=== PATIENT | female | born 1940 | race Caucasian/White ===

== ENCOUNTER 2017-09-22 19:00 | Emergency (ER) | payer MEDICAID ==
[2017-09-22 19:00] VITALS: BMI 28.7
[2017-09-22 19:19] VITALS: RESP 20
[2017-09-22] MEDS ORDERED: Iohexol 240 (50 ml) PO ONE (19:32)
[2017-09-22] MEDS ORDERED: Sodium Chloride 0.9% 1,000 ML IV ONE (19:33)
--- NOTE | 2017-09-22 19:35 | C.PDOC ---
77-year-old female presents to the ED for evaluation of headache and dizziness which began a few days ago. Patient is also complaining of abdominal pain and states she has been feeling nauseous. Patient reports history of dysuria and denies fever, chills, vomiting, diarrhea. (GuillermoGarry R) History Per: Patient History/Exam Limitations: no limitations Onset/Duration Of Symptoms: Days Current Symptoms Are (Timing): Still Present Quality Of Discomfort: "Pain" Associated Symptoms: Nausea. denies: Fever, Chills, Vomiting, Diarrhea Additional History Per: Patient Abnormal Vaginal Bleeding: No <Garry Guillermo R - Last Filed: 09/22/17 23:12> <Sunita Sanches - Last Filed: 09/26/17 15:32> Chief Complaint (Nursing): Abdominal Pain Past Medical History Reviewed: Historical Data, Nursing Documentation, Vital Signs - Medical History PMH: Arthritis (left shoulder), Asthma, CAD, CHF, HTN, Hypercholesterolemia, Hyperlipidemia Surgical History: CABG Family History: States: Unknown Family Hx - Social History Hx Tobacco Use: No Hx Alcohol Use: No Hx Substance Use: No - Immunization History Hx Tetanus Toxoid Vaccination: No Hx Influenza Vaccination: Yes Hx Pneumococcal Vaccination: No <Garry Guillermo R - Last Filed: 09/22/17 23:12> Vital Signs: Last Vital Signs Temp 97.6 F 09/22/17 23:27 Pulse 81 09/22/17 23:27 Resp 20 09/22/17 23:27 BP 140/70 09/22/17 23:27 Pulse Ox 98 09/22/17 23:27 - [facility] Procedures CLOSED ENDOSCOPIC BIOPSY OF LARGE INTESTINE (03/15/14) CORONAR ARTERIOGR-2 CATH (09/05/12) LEFT HEART CARDIAC CATH (09/05/12) LT HEART ANGIOCARDIOGRAM (09/05/12) Review Of Systems Constitutional: Negative for: Fever, Chills Gastrointestinal: Positive for: Nausea, Abdominal Pain. Negative for: Vomiting , Diarrhea Neurological: Positive for: Headache, Dizziness <Garry Guillermo R - Last Filed: 09/22/17 23:12> Physical Exam - Physical Exam Appears: Non-toxic, No Acute Distress, Other (in mild distress due to headache ) Skin: Normal Color, Warm, Dry Head: Atraumatic, Normacephalic Eye(s): bilateral: PERRL, EOMI, Other (lateral nystagmus ) Ear(s): Bilateral: Normal Oral Mucosa: Moist Neck: Normal ROM, Supple Chest: Symmetrical, No Deformity, No Tenderness Cardiovascular: Rhythm Regular, No Murmur Respiratory: Normal Breath Sounds, No Rales, No Rhonchi, No Wheezing Gastrointestinal/Abdominal: Soft, Tenderness (to left lower quadrant ), No Guarding, No Rebound Extremity: Normal ROM, Capillary Refill (less than 2 seconds ) Neurological/Psych: Oriented x3, Normal Speech, Normal Cognition Gait: Steady <Guillermo,Garry R - Last Filed: 09/22/17 23:12> ED Course And Treatment - Laboratory Results Result Diagrams: 09/22/17 19:41 09/22/17 19:41 O2 Sat by Pulse Oximetry: 97 (on RA) Pulse Ox Interpretation: Normal - CT Scan/US CT head Other Rad Studies (CT/US): Read By Radiologist, Radiology Report Reviewed CT/US Interpretation: FINDINGS: Brain: There is mild diffuse cerebral atrophy present, consistent with this patient's age. The brain is. otherwise unremarkable. Normal jalloh-white matter differentiation is present, without acute. hemorrhage, or mass. Ventricles: Unremarkable. No ventriculomegaly. Bones/joints: Unremarkable. No acute fracture. Soft tissues: Unremarkable. Sinuses: Unremarkable as visualized. No acute sinusitis. Mastoid air cells: Unremarkable as visualized. No mastoid effusion. IMPRESSION: No acute intracranial findings are seen. Thank you for allowing us to participate in the care of your patient. Dictated and Authenticated by: Gato Aguilera MD. 09/22/2017 10:20 PM Eastern Time ([place] & [place]) CT C Spine Other Rad Studies (CT/US): Read By Radiologist, Radiology Report Reviewed CT/US Interpretation: FINDINGS: Vertebrae: There is moderate diffuse osteopenia. No acute fracture. Discs/spinal canal/neural foramina: There is moderate intervertebral disc height loss and adjacent. sclerosis associated with C5-C6. The facet joints demonstrate moderate degenerative narrowing and. sclerosis, most pronounced at C3-C4 on the left. Soft tissues: Unremarkable. Vasculature: There is marked atherosclerotic calcification of the carotid arteries. Sinuses: Sinuses are clear without air-fluid levels, or mucoperiosteal thickening. Thyroid: There is a lesion of the right thyroid lobe with coarse calcification measuring 1 mm. Lung apices: Unremarkable as visualized. IMPRESSION: No significant injury noted in the C-spine. Moderate age-appropriate degenerative changes. Thank you for allowing us to participate in the care of your patient. CT abd/pelvis Other Rad Studies (CT/US): Read By Radiologist, Radiology Report Reviewed CT/US Interpretation: FINDINGS: Lung bases: Scattered likely postinflammatory 2 mm nodules in the lung base subpleural in location. on the right side. ABDOMEN: Liver: Unremarkable. No mass. Gallbladder and bile ducts: There has been a cholecystectomy. Pancreas: Unremarkable. No mass. No ductal dilation. Spleen: Benign calcifications associated with the splenic capsule. Adrenals: Unremarkable. No mass. Kidneys and ureters: Large fatty mass associated with the perinephric region differential diagnosis. includes a very large angiomyolipoma or a prominent liposarcoma. Numerous vessels are seen. extending to this fatty mass which measures approximately 11 x 13 cm. Stomach and bowel: Bowel loops appear within normal limits, no signs of wall thickening , mucosal. edema, or bowel distention. Moderate diverticulosis is present in the sigmoid and descending colon. PELVIS: Appendix: A normal appendix seen in the right lower quadrant. Bladder: Unremarkable. No mass. Reproductive: Unremarkable as visualized. ABDOMEN and PELVIS: Intraperitoneal space: Unremarkable. No free air. No significant fluid collection. Bones/joints: No acute fracture. No dislocation. Soft tissues: Small fat-containing paraumbilical hernia is present. Vasculature: The aorta demonstrates moderate atherosclerotic calcification. No abdominal aortic. aneurysm. Lymph nodes: Unremarkable. No enlarged lymph nodes. IMPRESSION: Large fatty mass associated with the left kidney and left perinephric space. Differential diagnosis. includes a prominent angiomyolipoma, or liposarcoma. Incidental nonacute findings, which are described. Thank you for allowing us to participate in the care of your patient. Dictated and Authenticated by: Gato Aguilera MD. 09/22/2017 10:30 PM Eastern Time ([place] & [place]) Progress Note: Bloodwork, CT A/P, CT Cervical Spine, CT Head, EKG ordered and reviewed. Antivert PO, Toradol IVP, Zofran IVP and IV Fluids administered. <Garry Guillermo R - Last Filed: 09/22/17 23:12> - Laboratory Results Result Diagrams: 09/22/17 19:41 09/22/17 19:41 <Sunita Sanches - Last Filed: 09/26/17 15:32> Disposition Counseled Patient/Family Regarding: Diagnosis - Disposition Disposition Time: 23:04 - POA Present On Arrival: None <Garry Guillermo - Last Filed: 09/22/17 23:12> <Sunita Sanches - Last Filed: 09/26/17 15:32> - Disposition Referrals: [facility] at [facility] [Outside] Disposition: HOME/ ROUTINE Condition: STABLE Prescriptions: Meclizine [Antivert] 12.5 mg PO Q6 #14 tab Naproxen 375 mg PO TIDPC #20 tablet Nitrofurantoin Macrocrystals [Macrobid] 1 cap PO BID #14 cap Instructions: Urinary Tract Infections in Adults, Vertigo (a Type of Dizziness ) (DC) Forms: [employer] (Paraguayan), Gen Discharge Inst [place] Print Language: CITIZEN OF [place] - Clinical Impression Clinical Impression: Vertigo, UTI (urinary tract infection) - Scribe Statement The provider has reviewed the documentation as recorded by the Scribe (Neelima Aponte) <Garry Guillermo - Last Filed: 09/22/17 23:12> <Sunita Sanches - Last Filed: 09/26/17 15:32> - Scribe Statement Provider Attestation: All medical record entries made by the Scribe were at my direction and personally dictated by me. I have reviewed the chart and agree that the record accurately reflects my personal performance of the history, physical exam, medical decision making, and the department course for this patient. I have also personally directed, reviewed, and agree with the discharge instructions and disposition. (Garry Guillermo) Addendum <Garry Guillermo - Last Filed: 09/22/17 23:12> <Sunita Sanches - Last Filed: 09/26/17 15:32> Addendum: 09/26/17 15:30 radiology discrepancy PROCEDURE: CT Cervical Spine without contrast HISTORY: head and neck pain COMPARISON: None available. TECHNIQUE: Axial computed tomography images were obtained of the cervical spine without the use of intravenous contrast. Coronal and sagittal reformatted images were created and reviewed. Radiation dose: Total exam DLP = 489.99 mGy-cm. This CT exam was performed using one or more of the following dose reduction techniques: Automated exposure control, adjustment of the mA and/or kV according to patient size, and/or use of iterative reconstruction technique. FINDINGS: VERTEBRAE: There is normal alignment of the cervical vertebral bodies. There is straightening of cell cervical spine with loss of normal cervical lordosis. Vertebral height is normal. Bone mineralization is normal. There is no acute fracture or traumatic anterior listhesis. The craniocervical junction is normal. The atlantoaxial joint normal. There is diffuse bone demineralization. DISCS/SPINAL CANAL/NEURAL FORAMINA: There is multilevel degenerative disc disease due to combination of disc osteophyte complexes, uncovertebral joint hypertrophy and multilevel facet arthropathy, worse at C5-6 with moderate neural foraminal narrowing and mild spinal canal stenosis. PARASPINAL SOFT TISSUES: Unremarkable. OTHER FINDINGS: There is a calcified nodule in the right thyroid lobe. There is an exophytic noncalcified nodule in the left lower pole of the thyroid lobe. The lung apices are clear. IMPRESSION: Multilevel degenerative disc disease, worse at C5-6 with moderate neural foraminal narrowing and mild spinal canal stenosis. No acute fracture or traumatic anterior listhesis. Multinodular thyroid gland with an anticipated non calcified nodule in the lower pole of the left thyroid lobe. A dedicated thyroid ultrasound is recommended for further evaluation. A preliminary report was provided by [employer]. Additional findings in the thyroid lobe as described above. The final report is tagged to PA review folder. Unable to reach patient. Will send certified letter Perhaps, on preliminary reading same findings were noted. (Sunita Sanches)
[2017-09-22] MEDS ORDERED: Iohexol 240 (50 ml) ONE (19:46)
[2017-09-22] MEDS ORDERED: Sodium Chloride 0.9% 1,000 ML ONE (19:46)
[2017-09-22 19:47] LABS: BASO # 0.1 K/uL (0.0-0.2); BASO % 0.7 % (0.0-2.0); EOS # 0.1 K/uL (0.0-0.7); EOS % 1.4 % (0.0-4.0); HEMOGLOBIN 11.6 g/dL (11.0-16.0); LYMPH # 2.5 K/uL (1.0-4.3); LYMPH % 27.8 % (20.0-40.0); MEAN CORPUSCULAR HEMOGLOBIN 26.2 pg (27.0-31.0); MEAN CORPUSCULAR HGB CONC 32.7 g/dL (33.0-37.0); MONO % 11.8 % (0.0-10.0); NEUT # 5.2 K/uL (1.8-7.0); NEUT % 58.3 % (50.0-75.0); RBC 4.44 Mil/uL (3.80-5.20); WHITE BLOOD COUNT 8.8 K/uL (4.8-10.8)
[2017-09-22 19:59] LABS: ALBUMIN 4.7 g/dL (3.5-5.0); BLOOD UREA NITROGEN 25 mg/dL (7-17); CALCIUM 9.5 mg/dl (8.6-10.4); GFR AFRICAN-AMERICAN > 60; GFR NON-AFRICAN AMERICAN > 60
[2017-09-22 20:00] LABS: ALB/GLOB RATIO 1.4 (1.0-2.1); ALT/SGPT 23 U/L (9-52); AST/SGOT 22 U/L (14-36)
[2017-09-22] MEDS ORDERED: Iodixanol 320 MG/ML 100 ML BOTTLE IV ONE (20:59)
[2017-09-22 22:53] LABS: SQUAMOUS EPITHIAL 3 /hpf (0-5); URINE BACTERIA MOD (<OCC); URINE BILIRUBIN NEGATIVE (NEGATIVE); URINE BLOOD NEGATIVE (NEGATIVE); URINE CLARITY Clear (Clear); URINE COLOR Straw (YELLOW); URINE GLUCOSE (UA) NORMAL (Normal); URINE LEUKOCYTE ESTERASE 1+ Leu/uL (Negative); URINE PROTEIN NEGATIVE (NEGATIVE); URINE UROBILINOGEN NORMAL mg/dL (0.2-1.0)
[2017-09-22 23:27] VITALS: BP 140/70; PULSE 81; TEMP 97.6; O2SAT 98
--- NOTE | 2017-09-23 08:48 | CT ---
PROCEDURE: CT HEAD WITHOUT CONTRAST. HISTORY: Headache COMPARISON: None available. TECHNIQUE: Axial computed tomography images were obtained through the head/brain without intravenous contrast. Radiation dose: Total exam DLP = 792.73 mGy-cm. This CT exam was performed using one or more of the following dose reduction techniques: Automated exposure control, adjustment of the mA and/or kV according to patient size, and/or use of iterative reconstruction technique. FINDINGS: HEMORRHAGE: No intracranial hemorrhage. BRAIN: There are mild chronic microangiopathic changes. There is no mass, mass effect or abnormal extra-axial fluid collection. There is no territorial infarction. VENTRICLES: There is mild age-related global parenchymal volume loss and proportionate enlargement of the ventricles and cortical sulci. CALVARIUM: Unremarkable. PARANASAL SINUSES: Unremarkable as visualized. No significant inflammatory changes. MASTOID AIR CELLS: Unremarkable as visualized. No inflammatory changes. OTHER FINDINGS: None. IMPRESSION: No acute intracranial abnormality. Mild chronic microangiopathic changes and mild age-related global parenchymal volume loss. A preliminary report was provided by [employer].
--- NOTE | 2017-09-23 09:34 | CT ---
PROCEDURE: CT Cervical Spine without contrast HISTORY: head and neck pain COMPARISON: None available. TECHNIQUE: Axial computed tomography images were obtained of the cervical spine without the use of intravenous contrast. Coronal and sagittal reformatted images were created and reviewed. Radiation dose: Total exam DLP = 489.99 mGy-cm. This CT exam was performed using one or more of the following dose reduction techniques: Automated exposure control, adjustment of the mA and/or kV according to patient size, and/or use of iterative reconstruction technique. FINDINGS: VERTEBRAE: There is normal alignment of the cervical vertebral bodies. There is straightening of cell cervical spine with loss of normal cervical lordosis. Vertebral height is normal. Bone mineralization is normal. There is no acute fracture or traumatic anterior listhesis. The craniocervical junction is normal. The atlantoaxial joint normal. There is diffuse bone demineralization. DISCS/SPINAL CANAL/NEURAL FORAMINA: There is multilevel degenerative disc disease due to combination of disc osteophyte complexes, uncovertebral joint hypertrophy and multilevel facet arthropathy, worse at C5-6 with moderate neural foraminal narrowing and mild spinal canal stenosis. PARASPINAL SOFT TISSUES: Unremarkable. OTHER FINDINGS: There is a calcified nodule in the right thyroid lobe. There is an exophytic noncalcified nodule in the left lower pole of the thyroid lobe. The lung apices are clear. IMPRESSION: Multilevel degenerative disc disease, worse at C5-6 with moderate neural foraminal narrowing and mild spinal canal stenosis. No acute fracture or traumatic anterior listhesis. Multinodular thyroid gland with an anticipated non calcified nodule in the lower pole of the left thyroid lobe. A dedicated thyroid ultrasound is recommended for further evaluation. A preliminary report was provided by [employer]. Additional findings in the thyroid lobe as described above. The final report is tagged to PA review folder.
--- NOTE | 2017-09-23 15:05 | CT ---
PROCEDURE: CT Abdomen and Pelvis with contrast HISTORY: LLQ/ epigastric abd pain COMPARISON: 02/25/2015. TECHNIQUE: CT scan of the abdomen and pelvis was performed without administration of intravenous contrast. Oral contrast was not administered. Coronal and sagittal reformatted images were obtained. Contrast dose: 100 mL Visipaque Radiation dose: Total exam DLP = 417.51 mGy-cm. This CT exam was performed using one or more of the following dose reduction techniques: Automated exposure control, adjustment of the mA and/or kV according to patient size, and/or use of iterative reconstruction technique. FINDINGS: LOWER THORAX: The visualized lungs are clear. LIVER: Normal in size with homogeneous enhancement. No gross lesion or ductal dilatation. GALLBLADDER AND BILE DUCTS: Surgically absent. PANCREAS: Normal in size with homogeneous enhancement. No gross lesion or ductal dilatation. SPLEEN: Normal in size with homogeneous enhancement. There are coarse lateral capsular calcifications in the upper pole. ADRENALS: No discrete nodule. KIDNEYS AND URETERS: The right kidney is normal in size with homogeneous enhancement. No hydronephrosis. No solid mass. The left kidney is normal in size without hydronephrosis or nephrolithiasis. There are small simple cortical cysts. There is redemonstration of a large fat-density exophytic mass with large feeding vessels in the left perinephric region not significantly changed in size and appearance since the prior examination. VASCULATURE: Advanced atherosclerotic aortoiliac calcifications. No aortic aneurysm. BOWEL: The small bowel loops are normal in caliber. There is colonic diverticulosis without CT evidence for acute diverticulitis. No obstruction. No gross mural thickening. APPENDIX: Normal appendix. PERITONEUM: No free fluid. No free air. LYMPH NODES: No enlarged lymph nodes. BLADDER: Unremarkable. REPRODUCTIVE: Unremarkable. BONES: No acute fracture. Within normal limits for the patient's age. OTHER FINDINGS: None. IMPRESSION: 1. No acute abdominal or pelvic abnormality. 2. No significant interval change in size and appearance of large fatty density vascular exophytic mass in the left perinephric region which may represent an angiomyolipoma or liposarcoma. 3. Left colonic diverticulosis without CT evidence for acute diverticulitis. A preliminary report was provided by [employer].
--- NOTE | 2017-09-26 12:06 | CARD ---
APPROVED REPORT EKG Measurement Heart Prer60PBGR IN 142P59 [id number] <Conclusion> Normal sinus rhythm with sinus arrhythmia Minimal voltage criteria for LVH, may be normal variant Inferior infarct, age undetermined Abnormal ECG
== END 2017-09-22 23:29 | disposition home or self-care (01) ==
LOC: C.ER 19:00
DX: R42 Dizziness and giddiness (principal); N39.0 Urinary tract infection, site not specified
CPT/HCPCS: 70450; 72125; 74177; 80053; 81001; 82948; 85025; 87086; 87181; 93005; 96361; 96374; 96375; 99285; J1885; J2060; J2405; J7030; Q9966; Q9967

== ENCOUNTER 2017-12-31 19:47 | Inpatient (IN) | payer MEDICAID ==
[2017-12-31 19:47] VITALS: BMI 28.7
[2017-12-31] MEDS ORDERED: Sodium Chloride 0.9% 1,000 ML IV ONE ×2 (20:12)
--- NOTE | 2017-12-31 20:19 | C.PDOC ---
History Of Present Illness 77 year old female presents to the ED c/o left sided abdominal pain that radiates to her left groin that started this morning. Patient also states having some nausea. Patient has prior history of kidney problems in the past. Patient denies fever, chills, vomit, diarrhea, dysuria, hematuria, back pain. Chief Complaint (Nursing): Abdominal Pain History Per: Patient History/Exam Limitations: no limitations Onset/Duration Of Symptoms: Hrs Current Symptoms Are (Timing): Still Present Severity: Moderate Pain Scale Rating Of: 8 Location Of Pain/Discomfort: LLQ Radiation Of Pain To:: None Quality Of Discomfort: "Pain" Associated Symptoms: Nausea. denies: Vomiting, Diarrhea, Loss Of Appetite, Urinary Symptoms Exacerbating Factors: None Alleviating Factors: None Recent travel outside of the [place]: No Additional History Per: Patient Abnormal Vaginal Bleeding: No Past Medical History Reviewed: Historical Data, Nursing Documentation, Vital Signs Vital Signs: Last Vital Signs Temp 97.5 F L 12/31/17 19:49 Pulse 104 H 12/31/17 19:49 Resp 20 12/31/17 19:49 BP 170/73 H 12/31/17 19:49 Pulse Ox 97 12/31/17 19:49 - Medical History PMH: Arthritis (left shoulder), Asthma, CAD, CHF, HTN, Hypercholesterolemia, Hyperlipidemia Surgical History: CABG - [facility] Procedures CLOSED ENDOSCOPIC BIOPSY OF LARGE INTESTINE (03/15/14) CORONAR ARTERIOGR-2 CATH (09/05/12) LEFT HEART CARDIAC CATH (09/05/12) LT HEART ANGIOCARDIOGRAM (09/05/12) Family History: States: Unknown Family Hx - Social History Hx Tobacco Use: No Hx Alcohol Use: No Hx Substance Use: No - Immunization History Hx Tetanus Toxoid Vaccination: No Hx Influenza Vaccination: Yes Hx Pneumococcal Vaccination: No Review Of Systems Constitutional: Negative for: Fever, Chills Cardiovascular: Negative for: Chest Pain Respiratory: Negative for: Shortness of Breath Gastrointestinal: Positive for: Nausea, Abdominal Pain. Negative for: Vomiting, Diarrhea Genitourinary: Negative for: Dysuria, Hematuria Skin: Negative for: Rash Neurological: Negative for: Weakness, Numbness Physical Exam - Physical Exam Appears: Non-toxic, In Acute Distress Skin: Normal Color, Warm, Dry Head: Atraumatic, Normacephalic Eye(s): bilateral: Normal Inspection Neck: Normal ROM, Supple Chest: Symmetrical Cardiovascular: Rhythm Regular Respiratory: Normal Breath Sounds, No Rales, No Rhonchi, No Wheezing Gastrointestinal/Abdominal: Soft, Tenderness, No Guarding, No Rebound Extremity: Normal ROM, No Tenderness, No Swelling Neurological/Psych: Oriented x3, Normal Speech, Normal Cognition Gait: Steady ED Course And Treatment - Laboratory Results Result Diagrams: 12/31/17 20:39 12/31/17 20:39 O2 Sat by Pulse Oximetry: 97 (ON RA) Pulse Ox Interpretation: Normal - CT Scan/US Ct abd/pelvis Other Rad Studies (CT/US): Read By Radiologist, Radiology Report Reviewed CT/US Interpretation: CONTRAST With; VISI [address] SCAN OF THE ABDOMEN AND PELVIS WITH CONTRAST. CLINICAL HISTORY: Abdominal pain. TECHNIQUE: Multiple axial and coronal CT images were obtained through the abdomen and pelvis after administration of intravenous contrast material. COMMENTS: Colonic diverticulosis. Diffuse thickening and enhancement of the colon. The liver is of uniform attenuation without mass or defect. There is no intra or extrahepatic biliary ductal dilatation. The spleen is normal. The gallbladder is surgically absent. The pancreas is of normal contour and attenuation characteristics. There is no evidence of adrenal mass. Left renal fat containing mass measuring 11.9x9.5x13.5 cm in its largest anteroposterior, transverse and craniocaudal d imensions respectively. Scattered bilateral renal cysts. Both kidneys demonstrate prompt and equal nephrograms. No renal or ureteral calculi are identified. There is no hydroureter or hydronephrosis. No evidence for appendicitis. No evidence for small or large bowel obstruction. There is no evidence of abdominal ascites or lymphadenopathy. There is no evidence of intrinsic or extrinsic bladder mass. There is no pelvic ascites or lymphadenopathy. Images of the lung bases show no evidence of pleural or parenchymal mass. There are no pleural effusions. The bony structures are free of lytic or blastic lesions. 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 Diffuse uncomplicated colitis without perforation or abscess formation. Thank you for your kind referral of this patient. . Electronically signed on Jan 01, 2018 1:42:57 AM EDT by: Deepak Mcmillan M.D., Certified by ABR, MSK, Neuroradiology Medical Decision Making Medical Decision Making: Plan: * Morphine 2 mg IVP * IV fluids * Toradol 30 mg IVP * Zofran 4 mg IVP * Urine culture * UA Disposition Discussed With Dr.: Brandon Cummins Doctor Will See Patient In The: Hospital Counseled Patient/Family Regarding: Diagnosis - Disposition Disposition: HOSPITALIZED Disposition Time: 03:28 Condition: STABLE - POA Present On Arrival: None - Clinical Impression Clinical Impression: Abdominal pain, Colitis - Scribe Statement The provider has reviewed the documentation as recorded by the Scribe Geoffrey Stout All medical record entries made by the Stevieibcass were at my direction and personall y dictated by me. I have reviewed the chart and agree that the record accurately reflects my personal performance of the history, physical exam, medical decision making, and the department course for this patient. I have also personally directed, reviewed, and agree with the discharge instructions and disposition.
[2017-12-31 20:36] LABS: BASO # 0.1 K/uL (0.0-0.2); BASO % 0.8 % (0.0-2.0); EOS # 0.1 K/uL (0.0-0.7); EOS % 0.8 % (0.0-4.0); HEMOGLOBIN 11.6 g/dL (11.0-16.0); LYMPH # 2.3 K/uL (1.0-4.3); LYMPH % 23.2 % (20.0-40.0); MEAN CORPUSCULAR HEMOGLOBIN 26.3 pg (27.0-31.0); MEAN CORPUSCULAR HGB CONC 32.8 g/dL (33.0-37.0); MEAN PLATELET VOLUME 8.1 fL (7.2-11.7); MONO # 0.8 K/uL (0.0-0.8); MONO % 7.9 % (0.0-10.0); NEUT # 6.5 K/uL (1.8-7.0); NEUT % 67.3 % (50.0-75.0); NRBC % 0.1 % (0.0-2.0); RBC 4.4 Mil/uL (3.80-5.20); RED CELL DISTRIBUTION WIDTH 13.9 % (11.5-14.5); WHITE BLOOD COUNT 9.7 K/uL (4.8-10.8)
[2017-12-31 21:10] LABS: BLOOD UREA NITROGEN 18 mg/dL (7-17); CALCIUM 9.6 mg/dl (8.6-10.4); GFR NON-AFRICAN AMERICAN > 60; LIPASE 70 U/L (23-300)
[2017-12-31 21:11] LABS: ALB/GLOB RATIO 1.2 (1.0-2.1); ALBUMIN 4.6 g/dL (3.5-5.0); ALT/SGPT 21 U/L (9-52); AST/SGOT 33 U/L (14-36)
[2017-12-31] MEDS ORDERED: Morphine 4 MG/ML VIAL ONE (21:39)
[2018-01-01] MEDS ORDERED: Iodixanol 320 MG/ML 100 ML BOTTLE IV ONE (00:50)
[2018-01-01] MEDS ORDERED: Ciprofloxacin 400mg/200ml D5W 400 MG/200 ML BAG IVPB STA (01:49)
[2018-01-01] MEDS ORDERED: metroNIDAZOLE IV 500 mg/100 ml 500 MG/100 ML BAG ONE (01:57)
[2018-01-01] MEDS ORDERED: Ciprofloxacin 400mg/200ml D5W 400 MG/200 ML BAG IVPB ONE (01:58)
[2018-01-01] MEDS ORDERED: metroNIDAZOLE IV 500 mg/100 ml 500 MG/100 ML BAG IVPB SCH (02:00)
[2018-01-01] MEDS ORDERED: metroNIDAZOLE IV 500 mg/100 ml 500 MG/100 ML BAG IVPB ONE (03:35)
[2018-01-01 06:38] VITALS: RESP 20
[2018-01-01 09:11] LABS: SQUAMOUS EPITHIAL 3 /hpf (0-5); URINE BACTERIA RARE (<OCC); URINE BILIRUBIN NEGATIVE (NEGATIVE); URINE BLOOD 1+ (NEGATIVE); URINE CLARITY Clear (Clear); URINE COLOR Yellow (YELLOW); URINE GLUCOSE (UA) NORMAL (Normal); URINE LEUKOCYTE ESTERASE TRACE Leu/uL (Negative); URINE PROTEIN NEGATIVE (NEGATIVE); URINE UROBILINOGEN NORMAL mg/dL (0.2-1.0)
--- NOTE | 2018-01-01 10:04 | CT ---
Date of service: 01/01/2018 PROCEDURE: CT Abdomen and Pelvis with intravenous contrast HISTORY: Left-sided abdominal pain COMPARISON: None. TECHNIQUE: Multiple contiguous axial images were performed through the abdomen and pelvis with the use of intravenous contrast. Subsequently, sagittal and coronal reformatted images were obtained. Radiation dose: Total exam DLP = 829 mGy-cm. This CT exam was performed using one or more of the following dose reduction techniques: Automated exposure control, adjustment of the mA and/or kV according to patient size, and/or use of iterative reconstruction technique. FINDINGS: LOWER THORAX: 4 millimeter focal area of nodular consolidation within inferior anterior right middle lobe. More linear atelectasis at the lateral aspect of the right lower. LIVER: Unremarkable. No gross lesion or ductal dilatation. GALLBLADDER AND BILE DUCTS: Prior cholecystectomy. PANCREAS: Unremarkable. No gross lesion or ductal dilatation. SPLEEN: Dense splenic calcifications along the lateral left margin of the spleen measuring up to 2.7 x 1.0 centimeters. Uncertain clinical etiology. Clinical correlation. ADRENALS: Unremarkable. No mass. KIDNEYS AND URETERS: Large fat containing mass measuring up to 12.0 x 10.0 x 13.7 centimeters at the level of the mid to lower pole of the left kidney anteriorly with a small intraparenchymal component measuring up to 7 millimeters. 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 Multiple internal vessels and or septations. Correlation with multiphasic CT or MR would be helpful for further characterization this lesion. Additional small fat containing lesions seen within the midpole of the left kidney measuring up to 4 and 5 millimeters. 8 millimeter low-attenuation lesion in the inferior pole of the right kidney, too small to adequately characterize. VASCULATURE: Prominent calcification and plaque in the aorta. Coronary calcifications. BOWEL: Colonic diverticulosis. Diffuse thickening and enhancement of the colon. APPENDIX: No findings to suggest acute appendicitis. PERITONEUM: Unremarkable. No free fluid. No free air. LYMPH NODES: Unremarkable. No enlarged lymph nodes. BLADDER: Unremarkable. REPRODUCTIVE: Unremarkable. BONES: Degenerative changes in the spine. Minimal anterolisthesis of L5 on S1. OTHER FINDINGS: None. IMPRESSION: 1. Colonic diverticulosis. Diffuse thickening and enhancement of the colon. These findings would be concerning for a possible colitis. Clinical correlation. 2. Large fat containing mass measuring up to 12.0 x 10.0 x 13.7 centimeters at the level of the mid to lower pole of the left kidney anteriorly with a small intraparenchymal component measuring up to 7 millimeters. 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 Multiple internal vessels and or septations. Correlation with multiphasic CT or MR would be helpful for further characterization this lesion. Additional small fat containing lesions seen within the midpole of the left kidney measuring up to 4 and 5 millimeters. 3. Dense splenic calcifications along the lateral left margin of the spleen measuring up to 2.7 x 1.0 centimeters. Uncertain clinical etiology. Clinical correlation. These findings were preliminarily reported by Dr. Deepak Mcmillan on 01/01/2018 at 1:42 a.m. from [facility].
--- NOTE | 2018-01-01 10:17 | CP.PCM.HP ---
<Angella Garber - Last Filed: 01/01/18 16:11> History of Present Illness - History of Present Illness History of Present Illness: 77 year old patient w/ a PMHx of CAD(CABG), CHF, HTN, HLD, left renal mass, asthma, arthritis, presents to the ED w/ complaints of worsening LLQ abdominal pain that began yesterday morning, associated w/ multiple episodes of watery diarrhea and nausea. Pt reports abdominal pain radiates to sternum and diffusely over abdomen. Pt reports a chronic history of GI discomfort, but never as severe as her presentation today. Pt denies recent illness or sick contacts, chest pain, SOB, emesis, hematochezia, or dysuria. PMD: Dr. Valdes, Cardio: [facility] PMHx:CAD, CHF, HTN, HLD, asthma, arthritis, left renal mass PSHx: CABG, vascular sx(unknown) last month, open heart sx(unknown), cholecystectomy, cataract sx All: PCN FamHx: cardiac dz SocHx: denies alcohol/tobacco/drugs. Has home health aide. Present on Admission - Present on Admission Any Indicators Present on Admission: No Review of Systems - EENT Nose/Mouth/Throat: absent: Nasal Congestion - Cardiovascular Cardiovascular: absent: Chest Pain, Dyspnea, Edema - Respiratory Respiratory: absent: Cough, Chest Congestion - Gastrointestinal Gastrointestinal: Abdominal Pain (LLQ), Diarrhea (watery), Nausea. absent: Hematemesis, Hematochezia, Vomiting - Genitourinary Genitourinary: absent: Difficulty Urinating, Dysuria, Hematuria Past Patient History - Infectious Disease Hx of Infectious Diseases: None - Past Medical History & Family History Past Medical History?: Yes - Past Social History Smoking Status: Never Smoked - CARDIAC Hx Congestive Heart Failure: Yes Hx Hypercholesterolemia: Yes Hx Hypertension: Yes - PULMONARY Hx Asthma: Yes - HEMATOLOGICAL/ONCOLOGICAL Hx Blood Transfusions: No Hx Blood Transfusion Reaction: No - MUSCULOSKELETAL/RHEUMATOLOGICAL Hx Arthritis: Yes (left shoulder) - GASTROINTESTINAL Hx Gastroesophageal Reflux: Yes - PSYCHIATRIC Hx Substance Use: No - SURGICAL HISTORY Hx Coronary Artery Bypass Graft: Yes - ANESTHESIA Hx Anesthesia: Yes Hx Anesthesia Reactions: No Hx Malignant Hyperthermia: No Meds Allergies/Adverse Reactions: Allergies Allergy/AdvReac Type Severity Reaction Status Date / Time Penicillins Allergy RASH Verified 01/01/18 00:11 Physical Exam - Constitutional Appears: No Acute Distress - Head Exam Head Exam: ATRAUMATIC, NORMAL INSPECTION, NORMOCEPHALIC - Eye Exam Eye Exam: EOMI, Normal appearance - ENT Exam ENT Exam: Mucous Membranes Moist, Normal Exam - Neck Exam Neck exam: Positive for: Normal Inspection. Negative for: Lymphadenopathy - Respiratory Exam Respiratory Exam: Rales, NORMAL BREATHING PATTERN - Cardiovascular Exam Cardiovascular Exam: REGULAR RHYTHM, Systolic Murmur. absent: Tachycardia - GI/Abdominal Exam GI & Abdominal Exam: Normal Bowel Sounds, Soft, Tenderness (LLQ). absent: Distended - Extremities Exam Extremities exam: Positive for: normal inspection. Negative for: calf tenderness, pedal edema - Neurological Exam Neurological exam: Alert, Oriented x3 - Psychiatric Exam Psychiatric exam: Normal Affect, Normal Mood - Skin Skin Exam: Dry, Intact, Normal Color, Warm Results - Vital Signs Recent Vital Signs: Last Vital Signs Temp 98 F 01/01/18 07:40 Pulse 83 01/01/18 07:40 Resp 20 01/01/18 07:40 BP 108/64 01/01/18 07:40 Pulse Ox 97 01/01/18 10:12 - Labs Result Diagrams: 12/31/17 20:39 12/31/17 20:39 Labs: Laboratory Results - last 24 hr 12/31/17 12/31/17 01/01/18 20:39 20:39 08:54 WBC 9.7 RBC 4.40 Hgb 11.6 Hct 35.2 MCV 80.0 L MCH 26.3 L MCHC 32.8 L RDW 13.9 Plt Count 286 MPV 8.1 Neut % (Auto) 67.3 Lymph % (Auto) 23.2 [place] % (Auto) 7.9 Eos % (Auto) 0.8 Baso % (Auto) 0.8 Neut # (Auto) 6.5 Lymph # (Auto) 2.3 [place] # (Auto) 0.8 Eos # (Auto) 0.1 Baso # (Auto) 0.1 Sodium 133 Potassium 4.9 Chloride 97 L Carbon Dioxide 22 Anion Gap 19 BUN 18 H Creatinine 0.6 L Est GFR ( Amer) > 60 Est GFR (Non-Af Amer) > 60 Random Glucose 116 H Calcium 9.6 Total Bilirubin 1.0 AST 33 ALT 21 Alkaline Phosphatase 162 H D Total Protein 8.6 H Albumin 4.6 Globulin 4.0 H Albumin/Globulin Ratio 1.2 Lipase 70 Urine Color Yellow Urine Clarity Clear Urine pH 5.0 Ur Specific [place] 1.010 Urine Protein Negative Urine Glucose (UA) Normal Urine Ketones Negative Urine Blood 1+ H Urine Nitrate Negative Urine Bilirubin Negative Urine Urobilinogen Normal Ur Leukocyte Esterase Trace Urine WBC (Auto) 1 Urine RBC (Auto) 4 H Ur Squamous Epith Cells 3 Urine Bacteria Rare Assessment & Plan - Assessment and Plan (Free Text) Assessment: 77 year old f w/ PMHx of CAD(CABG), CHF, HTN, HLD, left renal mass, asthma, arthritis admitted with colitis Colitis/Abd pain/nausea -CT abd -Cipro 400mg iv q12 -Flagyll 500mg iv q8 -zofran 4mg iv q6 prn -clear liquid diet -toradol 30mg iv q6 prn -morphine 2mg iv q6 prn -f/u blood/urine cx -NS @75/hr -GI consult Dr. Hauser CHF/HTN -CXR(01/01) no acute pathology -spironolactone 25mg po qd -coreg 25mg -norvasc 5mg po qd -losartan 100mg po qd -cardio consult Dr. Crews CAD -ASA 81mg po qd -crestor 5mg po qd Renal mass, chronic -UA -f/u urine cx Ppx -protonix 40mg po qd -lactobacillus BID <Oneil Solis H - Last Filed: 01/01/18 18:18> Results - Vital Signs Recent Vital Signs: Last Vital Signs Temp 98.7 F 01/01/18 15:57 Pulse 102 H 01/01/18 15:57 Resp 20 01/01/18 15:57 BP 124/58 L 01/01/18 17:57 Pulse Ox 97 01/01/18 15:57 - Labs Result Diagrams: 12/31/17 20:39 12/31/17 20:39 Labs: Laboratory Results - last 24 hr 12/31/17 12/31/17 01/01/18 20:39 20:39 08:54 WBC 9.7 RBC 4.40 Hgb 11.6 Hct 35.2 MCV 80.0 L MCH 26.3 L MCHC 32.8 L RDW 13.9 Plt Count 286 MPV 8.1 Neut % (Auto) 67.3 Lymph % (Auto) 23.2 [place] % (Auto) 7.9 Eos % (Auto) 0.8 Baso % (Auto) 0.8 Neut # (Auto) 6.5 Lymph # (Auto) 2.3 [place] # (Auto) 0.8 Eos # (Auto) 0.1 Baso # (Auto) 0.1 Sodium 133 Potassium 4.9 Chloride 97 L Carbon Dioxide 22 Anion Gap 19 BUN 18 H Creatinine 0.6 L Est GFR ( Amer) > 60 Est GFR (Non-Af Amer) > 60 Random Glucose 116 H Calcium 9.6 Total Bilirubin 1.0 AST 33 ALT 21 Alkaline Phosphatase 162 H D Total Protein 8.6 H Albumin 4.6 Globulin 4.0 H Albumin/Globulin Ratio 1.2 Lipase 70 Urine Color Yellow Urine Clarity Clear Urine pH 5.0 Ur Specific [place] 1.010 Urine Protein Negative Urine Glucose (UA) Normal Urine Ketones Negative Urine Blood 1+ H Urine Nitrate Negative Urine Bilirubin Negative Urine Urobilinogen Normal Ur Leukocyte Esterase Trace Urine WBC (Auto) 1 Urine RBC (Auto) 4 H Ur Squamous Epith Cells 3 Urine Bacteria Rare Attending/Attestation - Attestation I have personally seen and examined this patient.: Yes I have fully participated in the care of the patient.: Yes I have reviewed all pertinent clinical information: Yes Notes (Text): 01/01/18 18:18 Medical attending: Patient was seen and examined by me, reviewed the above note by the internist medical doctor md the above. It appears that the emergency room sent the patient to the medical floors without notifying the nighttime hospitalist service. We were notified earlier this morning that the patient did not have orders. Unfortunately this is becoming more frequent occurrence of the ER simply sending the patient's up to the medical floors without actually telling us. The ER documentation says that they spoke with the nighttime hospitalist however I have my doubts if that's true documentation. This is a 77-year-old female whose had from what I understand several admissions now for colitis and abdominal pain. She had a CAT scan showing thickening and enhancement of the colon the patient will be started on IV Cipro and Flagyl, she also get intravenous fluids as well and will have to monitor to her to make sure she doesn't become fluid overloadoad. The meantime we'll give IV morphine for pain as well as IV Toradol There is a history of elevated blood pressure as well, will continue the patient on Coreg, Norvasc, as well as her Cozaar. Also on CAT scan to be a large fat-containing mass around her left kidney. It doesn't look like it's change from previous. She's had several CAT scans in the past showing this mass. Currently her renal function is stable Thank you very much, Oneil Solis
[2018-01-01] MEDS: Ciprofloxacin 400mg/200ml D5W 400 MG/200 ML BAG IVPB SCH ×2 (11:23→22:27)
[2018-01-01] MEDS: Sodium Chloride 0.9% 1,000 ML IV SCH ×2 (11:24→15:27)
[2018-01-01] MEDS: metroNIDAZOLE IV 500 mg/100 ml 500 MG/100 ML BAG IVPB SCH ×2 (13:49→19:40)
--- NOTE | 2018-01-01 13:56 | RAD ---
Date of service: 01/01/2018 HISTORY: r/o pneumonia COMPARISON: 02/24/2015 TECHNIQUE: Chest PA and lateral FINDINGS: LUNGS: No active pulmonary disease. PLEURA: No significant pleural effusion identified. No pneumothorax apparent. CARDIOVASCULAR: Normal. OSSEOUS STRUCTURES: Sternal wires VISUALIZED UPPER ABDOMEN: Normal. OTHER FINDINGS: None. IMPRESSION: No active disease.
[2018-01-01] MEDS: Lactobacillus Acidophilus 500 MU Cap PO SCH (17:57)
--- NOTE | 2018-01-01 18:24 | CP.PCM.CON ---
History of Present Illness - History of Present Illness History of Present Illness: I was asked to evaluate patient by Dr Solis. Patient is a 77 year old female with PMH HTN, hyperhcolesterolemia, CAD s/p stent left circumflex, MV replacement who presents with abdominal pain. The patient apparently ahs had pain in the past and complains of intermittent Left flank pain. She denies chest pain. She is s/p cardaic cath revealing patent stent in the left circumflex. Review of Systems - Constitutional Constitutional: absent: As Per HPI, Anorexia, Chills, Daytime Sleepiness, Excessive Sweating, Fatigue, Fever, Frequent Falls, Headache, Increased Appe tite, Lethargy, Malaise, Night Sweats, Snoring, Sleep Apnea, Weight Gain, Weight Loss, Weakness, Other - EENT Eyes: absent: As Per HPI, Blind Spots, Blurred Vision, Change in Vision, Decreased Night Vision, Diplopia, Discharge, Dry Eye, Exophthalmos, Floaters, Irritation, Itchy Eyes, Loss of Peripheral Vision, Pain, Photophobia, Requires Corrective Lenses, Sees Flashes, Spots in Vision, Tunnel Vision, Other Visual Disturbances, Loss of Vision, Other Ears: absent: As Per HPI, Decreased Hearing, Ear Discharge, Ear Pain, Tinnitus, Abnormal Hearing, Disequilibrium, Dizziness, Other Nose/Mouth/Throat: absent: As Per HPI, Epistaxis, Nasal Congestion, Nasal Discharge, Nasal Obstruction, Nasal Trauma, Nose Pain, Post Nasal Drip, Sinus Pain, Sinus Pressure, Bleeding Gums, Change in Voice, Dental Pain, Dry Mouth, Dysphagia, Halitosis, Hoarsness, Lip Swelling, Mouth Lesions, Mouth Pain, Odynophagia, Sore Throat, Throat Swelling, Tongue Swelling, Facial Pain, Neck Pain, Neck Mass, Other - Cardiovascular Cardiovascular: absent: As Per HPI, Acrocyanosis, Chest Pain, Chest Pain at Rest, Chest Pain with Activity, Claudication, Diaphoresis, Dyspnea, Dyspnea on Exertion, Edema, Irregular Heart Rhythm, Pain Radiating to Arm/Neck/Jaw, Leg Edema, Leg Ulcers, Lightheadedness, Orthopnea, Palpitations, Paroxysmal Nocturnal Dyspnea, Pedal Edema, Radiating Pain, Rapid Heart Rate, Slow Heart Rate, Syncope, Other - Gastrointestinal Gastrointestinal: Abdominal Pain - Genitourinary Genitourinary: absent: As Per HPI, Change in Urinary Stream, Difficulty Urinating, Dysuria, Flank Pain, Hematuria, Pyuria, Nocturia, Urinary Incontinence, Urinary Frequency, Urinary Hesitance, Urinary Urgency, Voiding Freq/Small Amts, Freq UTI, Hx Renal/Bladder Calculi, Hx /Renal Surgery, Bladder Distension, Other - Musculoskeletal Musculoskeletal: absent: As Per HPI, Abnormal Gait, Arthralgias, Atrophy, Back Pain, Deformity, Joint Swelling, Limited Range of Motion, Loss of Height, Muscle Cramps, Muscle Weakness, Myalgias, Neck Pain, Numbness, Radiating Pain into Limb, Stiffness, Tingling, Other - Integumentary Integumentary: absent: As Per HPI, Acne, Alopecia, Bleeding Lesions, Change in Hair, Change in Nails, Change in Pigmentation, Changing Lesions, Dry Skin, Erythema, Furuncle, Hirsutism, Lesions, New Lesions, Non-Healing Lesions, Photosensitivity, Pruritus, Rash, Skin Pain, Skin Ulcer, Sores, Striae, Swelling, Unusual Bruising, Wounds, Jaundice, Other - Neurological Neurological: absent: As Per HPI, Abnormal Gait, Abnormal Hearing, Abnormal Movements, Abnormal Speech, Behavioral Changes, Burning Sensations, Confusion, Convulsions, Disequilibrium, Dizziness, Numbness, Focal Weakness, Frequent Falls, Headaches, Lack of Coordination, Loss of Vision, Memory Loss, Paresthesias, Radicular Pain, Restless Legs, Sensory Deficit, Syncope, Tingling, Tremor, Vertigo, Weakness, Other Visual Disturbances, Other - Psychiatric Psychiatric: absent: As Per HPI, Abnormal Sleep Pattern, Anhedonia, Anxiety, Auditory Hallucinations, Behavioral Changes, Change in Appetite, Change in Libido, Confusion, Depression, Difficulty Concentrating, Hallucinations, Homicidal Ideation, Hopelessness, Irritability, Memory Loss, Mood Swings, Panic Attacks, Paranoia, Suicidal Ideation, Visual Hallucinations, Tactile Hallucinations, Other - Endocrine Endocrine: absent: As Per HPI, Change in Body Appearance, Change in Libido, Cold Intolorance, Deepening of Voice, Excessive Sweating, Fatigue, Flushing, Heat Intolorance, Increase in Ring/Shoe/Hat Size, Palpitations, Polydipsia, Polyphagia, Polyuria, Other - Hematologic/Lymphatic Hematologic: absent: As Per HPI, Easy Bleeding, Easy Bruising, Lymphadenopathy, Other Past Patient History - Infectious Disease Hx of Infectious Diseases: None - Past Medical History & Family History Past Medical History?: Yes - Past Social History Smoking Status: Never Smoked - CARDIAC Hx Congestive Heart Failure: Yes Hx Hypercholesterolemia: Yes Hx Hypertension: Yes - PULMONARY Hx Asthma: Yes - HEENT Hx HEENT Problems: Yes Hx Cataracts: Yes - RENAL Other/Comment: Left Renal Mass - HEMATOLOGICAL/ONCOLOGICAL Hx Blood Transfusions: No Hx Blood Transfusion Reaction: No - MUSCULOSKELETAL/RHEUMATOLOGICAL Hx Arthritis: Yes (left shoulder) - GASTROINTESTINAL Hx Gastroesophageal Reflux: Yes - PSYCHIATRIC Hx Substance Use: No - SURGICAL HISTORY Hx Coronary Artery Bypass Graft: Yes - ANESTHESIA Hx Anesthesia: Yes Hx Anesthesia Reactions: No Hx Malignant Hyperthermia: No Meds Allergies/Adverse Reactions: Allergies Allergy/AdvReac Type Severity Reaction Status Date / Time Penicillins Allergy RASH Verified 01/01/18 00:11 - Medications Medications: Current Medications Amlodipine Besylate (Norvasc) 5 mg PO DAILY [facility] Last Admin: 01/01/18 14:46 Dose: 5 mg Aspirin (Ecotrin) 81 mg PO DAILY [facility] Carvedilol (Coreg) 25 mg PO BID [facility] Last Admin: 01/01/18 17:57 Dose: 25 mg Dicyclomine HCl (Bentyl) 10 mg PO TID [facility] Last Admin: 01/01/18 17:58 Dose: 10 mg Heparin Sodium (Porcine) (Heparin) 5,000 units SC Q12 [facility] Ciprofloxacin (Cipro 400mg/200ml Dsw) 400 mg in 200 mls @ 133 mls/hr IVPB Q12H [facility]; Protocol Last Admin: 01/01/18 11:23 Dose: 133 mls/hr Metronidazole (Flagyl) 500 mg in 100 mls @ 100 mls/hr IVPB Q8H [facility]; Protocol Last Admin: 01/01/18 13:49 Dose: 100 mls/hr Sodium Chloride (Sodium Chloride 0.9%) 1,000 mls @ 75 mls/hr IV .[id number] [facility] Last Admin: 01/01/18 15:27 Dose: 75 mls/hr Ketorolac Tromethamine (Toradol) 30 mg IV Q6 PRN PRN Reason: Pain, moderate (4-7) Lactobacillus Acidophilus (Bacid Acidophilus) 1 cap PO BID [facility] Last Admin: 01/01/18 17:57 Dose: 1 cap Losartan Potassium (Cozaar) 100 mg PO DAILY [facility] Morphine Sulfate (Morphine) 2 mg IVP Q6H PRN PRN Reason: Pain, severe (8-10) Ondansetron HCl (Zofran Inj) 4 mg IVP Q6 PRN PRN Reason: Nausea/Vomiting Pantoprazole Sodium (Protonix Ec Tab) 40 mg PO DAILY [facility] Rosuvastatin Calcium (Crestor) 5 mg PO HS [facility] Spironolactone (Aldactone) 25 mg PO DAILY [facility] Last Admin: 01/01/18 14:46 Dose: 25 mg Physical Exam - Constitutional Appears: Non-toxic - Head Exam Head Exam: NORMAL INSPECTION - Eye Exam Eye Exam: Normal appearance - ENT Exam ENT Exam: Mucous Membranes Moist - Neck Exam Neck exam: Positive for: Full Rom - Respiratory Exam Respiratory Exam: NORMAL BREATHING PATTERN - Cardiovascular Exam Cardiovascular Exam: REGULAR RHYTHM - GI/Abdominal Exam GI & Abdominal Exam: Normal Bowel Sounds - Rectal Exam Rectal Exam: Deferred - Extremities Exam Extremities exam: Negative for: pedal edema - Back Exam Back exam: NORMAL INSPECTION - Neurological Exam Neurological exam: Alert, Oriented x3 - Psychiatric Exam Psychiatric exam: Normal Affect - Skin Skin Exam: Normal Color Results - Vital Signs Recent Vital Signs: Last Vital Signs Temp 98.7 F 01/01/18 15:57 Pulse 102 H 01/01/18 15:57 Resp 20 01/01/18 15:57 BP 124/58 L 01/01/18 17:57 Pulse Ox 97 01/01/18 15:57 - Labs Result Diagrams: 12/31/17 20:39 12/31/17 20:39 Labs: Laboratory Results - last 24 hr 12/31/17 12/31/17 01/01/18 20:39 20:39 08:54 WBC 9.7 RBC 4.40 Hgb 11.6 Hct 35.2 MCV 80.0 L MCH 26.3 L MCHC 32.8 L RDW 13.9 Plt Count 286 MPV 8.1 Neut % (Auto) 67.3 Lymph % (Auto) 23.2 [place] % (Auto) 7.9 Eos % (Auto) 0.8 Baso % (Auto) 0.8 Neut # (Auto) 6.5 Lymph # (Auto) 2.3 [place] # (Auto) 0.8 Eos # (Auto) 0.1 Baso # (Auto) 0.1 Sodium 133 Potassium 4.9 Chloride 97 L Carbon Dioxide 22 Anion Gap 19 BUN 18 H Creatinine 0.6 L Est GFR ( Amer) > 60 Est GFR (Non-Af Amer) > 60 Random Glucose 116 H Calcium 9.6 Total Bilirubin 1.0 AST 33 ALT 21 Alkaline Phosphatase 162 H D Total Protein 8.6 H Albumin 4.6 Globulin 4.0 H Albumin/Globulin Ratio 1.2 Lipase 70 Urine Color Yellow Urine Clarity Clear Urine pH 5.0 Ur Specific [place] 1.010 Urine Protein Negative Urine Glucose (UA) Normal Urine Ketones Negative Urine Blood 1+ H Urine Nitrate Negative Urine Bilirubin Negative Urine Urobilinogen Normal Ur Leukocyte Esterase Trace Urine WBC (Auto) 1 Urine RBC (Auto) 4 H Ur Squamous Epith Cells 3 Urine Bacteria Rare - EKG Data EKG Interpreted by: Myself Assessment & Plan (1) CAD (coronary artery disease) Assessment and Plan: patient has patent stent on cardiac cath. will continue medical therapy. Status: Acute (2) HTN (hypertension) Assessment and Plan: blood pressure control Status: Chronic
[2018-01-02] MEDS: metroNIDAZOLE IV 500 mg/100 ml 500 MG/100 ML BAG IVPB SCH ×2 (03:35→12:04)
--- NOTE | 2018-01-02 06:52 | CP.PCM.CON ---
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 Symptoms began suddenly one day prior to admission. Pain began along the left flank and radiated to the LLQ and left groin. Monday evening, after onset of pain she began to have multiple episodes of watery diarrhea which continued all evening. She denies any hematochezia, melena and had no history of constipation prior to this event. The following morning, as pain persisted and was severe, she presented to the ED for further evaluation. A CT performed in the ED is limited in the absence of oral contrast but revealed distal colonic mucosal wall thickening from the proximal transverse colon to sigmoid colon with diverticula present as well as a persistent but enlarged exophytic left renal lesion, likely angiomyolipoma. Currently, abdominal pain, diarrhea and nausea have resolved and patient has increased appetite. She denies any vomiting, recent weight loss, fever, chills. She denies any recent illnesses/antibiotic use, travel or sick contacts. Last colonoscopy on record was in 2013 which showed mild chronic colitis with focal crypt abscess. Of note, patient has a complicated cardiac history with prior CABG and PCI to left circumflex with recent catheterization in December 2017 revealing patent stent. 12 system ROS performed and negative except where stated PMHx: See HPI PSHx: PCI to LCx, CABG, MVR, cholecystectomy, cataracts FHx: Discussed with patient and she denies any significant family history Social: Denies tobacco, EtOH or illicit drug use Endo: Colonoscopy 03/16 as described above Past Patient History - Infectious Disease Hx of Infectious Diseases: None - Past Medical History & Family History Past Medical History?: Yes - Past Social History Smoking Status: Never Smoked - CARDIAC Hx Congestive Heart Failure: Yes Hx Hypercholesterolemia: Yes Hx Hypertension: Yes - PULMONARY Hx Asthma: Yes - HEENT Hx HEENT Problems: Yes Hx Cataracts: Yes - RENAL Other/Comment: Left Renal Mass - HEMATOLOGICAL/ONCOLOGICAL Hx Blood Transfusions: No Hx Blood Transfusion Reaction: No - MUSCULOSKELETAL/RHEUMATOLOGICAL Hx Arthritis: Yes (left shoulder) - GASTROINTESTINAL Hx Gastroesophageal Reflux: Yes - PSYCHIATRIC Hx Substance Use: No - SURGICAL HISTORY Hx Coronary Artery Bypass Graft: Yes - ANESTHESIA Hx Anesthesia: Yes Hx Anesthesia Reactions: No Hx Malignant Hyperthermia: No Meds Allergies/Adverse Reactions: Allergies Allergy/AdvReac Type Severity Reaction Status Date / Time Penicillins Allergy RASH Verified 01/01/18 00:11 - Medications Medications: Current Medications Amlodipine Besylate (Norvasc) 5 mg PO DAILY [facility] Last Admin: 01/01/18 14:46 Dose: 5 mg Aspirin (Ecotrin) 81 mg PO DAILY [facility] Carvedilol (Coreg) 25 mg PO BID [facility] Last Admin: 01/01/18 17:57 Dose: 25 mg Dicyclomine HCl (Bentyl) 10 mg PO TID [facility] Last Admin: 01/01/18 17:58 Dose: 10 mg Heparin Sodium (Porcine) (Heparin) 5,000 units SC Q12 [facility] Last Admin: 01/01/18 22:34 Dose: 5,000 units Ciprofloxacin (Cipro 400mg/200ml Dsw) 400 mg in 200 mls @ 133 mls/hr IVPB Q12H [facility]; Protocol Last Admin: 01/01/18 22:27 Dose: 133 mls/hr Metronidazole (Flagyl) 500 mg in 100 mls @ 100 mls/hr IVPB Q8H [facility]; Protocol Last Admin: 01/02/18 03:35 Dose: 100 mls/hr Sodium Chloride (Sodium Chloride 0.9%) 1,000 mls @ 75 mls/hr IV .[id number] [facility] Last Admin: 01/02/18 00:00 Dose: 75 mls/hr Ketorolac Tromethamine (Toradol) 30 mg IV Q6 PRN PRN Reason: Pain, moderate (4-7) Lactobacillus Acidophilus (Bacid Acidophilus) 1 cap PO BID [facility] Last Admin: 01/01/18 17:57 Dose: 1 cap Losartan Potassium (Cozaar) 100 mg PO DAILY [facility] Morphine Sulfate (Morphine) 2 mg IVP Q6H PRN PRN Reason: Pain, severe (8-10) Ondansetron HCl (Zofran Inj) 4 mg IVP Q6 PRN PRN Reason: Nausea/Vomiting Pantoprazole Sodium (Protonix Ec Tab) 40 mg PO DAILY [facility] Rosuvastatin Calcium (Crestor) 5 mg PO HS [facility] Last Admin: 01/01/18 22:32 Dose: 5 mg Spironolactone (Aldactone) 25 mg PO DAILY [facility] Last Admin: 01/01/18 14:46 Dose: 25 mg Physical Exam - Constitutional Appears: Non-toxic, No Acute Distress - Eye Exam Eye Exam: EOMI, PERRL - ENT Exam ENT Exam: Mucous Membranes Moist - Respiratory Exam Respiratory Exam: Clear to Auscultation Bilateral. absent: Rales, Rhonchi, Wheezes - Cardiovascular Exam Cardiovascular Exam: RRR, +S1, +S2 Additional comments: chest wall, healed prior CABG scar - GI/Abdominal Exam GI & Abdominal Exam: Normal Bowel Sounds, Soft. absent: Distended, Firm, Guarding, Hernia, Organomegaly, Rigid, Tenderness - Extremities Exam Extremities exam: Positive for: normal inspection. Negative for: pedal edema - Neurological Exam Neurological exam: Alert, Oriented x3 - Psychiatric Exam Psychiatric exam: Normal Affect, Normal Mood - Skin Skin Exam: Dry, Warm Results - Vital Signs Recent Vital Signs: Last Vital Signs Temp 98.5 F 01/02/18 00:00 Pulse 96 H 01/02/18 00:00 Resp 20 01/02/18 00:00 BP 143/73 01/02/18 00:00 Pulse Ox 97 01/02/18 00:00 - Labs Result Diagrams: 01/02/18 07:59 12/31/17 20:39 Labs: Laboratory Results - last 24 hr 01/01/18 08:54 Urine Color Yellow Urine Clarity Clear Urine pH 5.0 Ur Specific [place] 1.010 Urine Protein Negative Urine Glucose (UA) Normal Urine Ketones Negative Urine Blood 1+ H Urine Nitrate Negative Urine Bilirubin Negative Urine Urobilinogen Normal Ur Leukocyte Esterase Trace Urine WBC (Auto) 1 Urine RBC (Auto) 4 H Ur Squamous Epith Cells 3 Urine Bacteria Rare Assessment & Plan - Assessment and Plan (Free Text) Assessment: Patient is a 77yo female with PMHx significant for CAD s/p PCI to left circumflex and prior CABG, CHF, valvular heart disease s/p MVR, HTN, hyperlipid emia, 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 -Left flank pain with radiation to LLQ and left groin -Large left renal mass, suspect angiomyolipoma given history -CAD s/p PCI and CABG -HTN Plan: -Differential includes self-limiting acute colitis, chronic ischemia given cardi ac history, pain as a result of enlarging left renal lesion, inflammatory bowel disease or less likely nephrolithiasis (not noted on IV contrast enhanced CT, 1+ blood on U/A noted); colonic malignancy cannot be excluded but also lower on differential -Agree to continue IVF until patient tolerating PO fluid intake -OK to advance diet as tolerated -Patient initiated on Cipro/Flagyl IV for nonspecific colitis by primary team -Pt on prophylactic subcutaneous Heparin, not currently using Plavix presently - Cardiology following -Would discontinue Bentyl -Recommend surgical evaluation for enlarging left renal lesion -Recommend outpatient follow up and colonoscopy for further evaluation of left flank discomfort - Date & Time Date: 01/02/18 Time: 06:53 <Jose Damon - Last Filed: 01/02/18 08:49> Meds - Medications Medications: Current Medications Amlodipine Besylate (Norvasc) 5 mg PO DAILY [facility] Last Admin: 01/01/18 14:46 Dose: 5 mg Aspirin (Ecotrin) 81 mg PO DAILY [facility] Carvedilol (Coreg) 25 mg PO BID [facility] Last Admin: 01/01/18 17:57 Dose: 25 mg Dicyclomine HCl (Bentyl) 10 mg PO TID [facility] Last Admin: 01/01/18 17:58 Dose: 10 mg Heparin Sodium (Porcine) (Heparin) 5,000 units SC Q12 [facility] Last Admin: 01/01/18 22:34 Dose: 5,000 units Ciprofloxacin (Cipro 400mg/200ml Dsw) 400 mg in 200 mls @ 133 mls/hr IVPB Q12H [facility]; Protocol Last Admin: 01/01/18 22:27 Dose: 133 mls/hr Metronidazole (Flagyl) 500 mg in 100 mls @ 100 mls/hr IVPB Q8H [facility]; Protocol Last Admin: 01/02/18 03:35 Dose: 100 mls/hr Sodium Chloride (Sodium Chloride 0.9%) 1,000 mls @ 75 mls/hr IV .[id number] [facility] Last Admin: 01/02/18 00:00 Dose: 75 mls/hr Ketorolac Tromethamine (Toradol) 30 mg IV Q6 PRN PRN Reason: Pain, moderate (4-7) Lactobacillus Acidophilus (Bacid Acidophilus) 1 cap PO BID [facility] Last Admin: 01/01/18 17:57 Dose: 1 cap Losartan Potassium (Cozaar) 100 mg PO DAILY [facility] Morphine Sulfate (Morphine) 2 mg IVP Q6H PRN PRN Reason: Pain, severe (8-10) Ondansetron HCl (Zofran Inj) 4 mg IVP Q6 PRN PRN Reason: Nausea/Vomiting Pantoprazole Sodium (Protonix Ec Tab) 40 mg PO DAILY [facility] Rosuvastatin Calcium (Crestor) 5 mg PO HS [facility] Last Admin: 01/01/18 22:32 Dose: 5 mg Spironolactone (Aldactone) 25 mg PO DAILY [facility] Last Admin: 01/01/18 14:46 Dose: 25 mg Results - Vital Signs Recent Vital Signs: Last Vital Signs Temp 97.7 F 01/02/18 07:48 Pulse 88 01/02/18 07:48 Resp 20 01/02/18 07:48 BP 146/59 L 01/02/18 07:48 Pulse Ox 96 01/02/18 07:48 - Labs Result Diagrams: 01/02/18 07:59 12/31/17 20:39 Labs: Laboratory Results - last 24 hr 01/01/18 01/02/18 01/02/18 08:54 07:59 07:59 WBC 5.0 RBC 3.72 L Hgb 10.1 L Hct 29.7 L MCV 79.7 L MCH 27.2 MCHC 34.1 RDW 13.9 Plt Count 262 MPV 8.3 Neut % (Auto) 54.9 Lymph % (Auto) 30.4 [place] % (Auto) 11.9 H Eos % (Auto) 2.3 Baso % (Auto) 0.5 Neut # (Auto) 2.8 Lymph # (Auto) 1.5 [place] # (Auto) 0.6 Eos # (Auto) 0.1 Baso # (Auto) 0.0 PT 12.0 INR 1.1 APTT 29 Urine Color Yellow Urine Clarity Clear Urine pH 5.0 Ur Specific [place] 1.010 Urine Protein Negative Urine Glucose (UA) Normal Urine Ketones Negative Urine Blood 1+ H Urine Nitrate Negative Urine Bilirubin Negative Urine Urobilinogen Normal Ur Leukocyte Esterase Trace Urine WBC (Auto) 1 Urine RBC (Auto) 4 H Ur Squamous Epith Cells 3 Urine Bacteria Rare Attending/Attestation - Attestation I have personally seen and examined this patient.: Yes I have fully participated in the care of the patient.: Yes I have reviewed all pertinent clinical information: Yes Notes (Text): 01/02/18 08:43 I have seen and examined patient with GI fellow. Agree with above documentation with the following additions. In brief, this is a 77 year old female with history of CAD/CABG/MVR, CHF, HTN, hyperlipidemia, angiomyolipoma who presents to hospital with complaint of worsening abdominal pain and diarrhea which began 2 days ago. Prior to this she was in usual state of health, though claims to have chronic left sided abdominal/flank pain for the past several years. Since arrival to hospital her diarrhea has resolved and abdominal pain has subsided. She is tolerating liquid diet without difficulties. She denies nausea, vomiting, fever/chills, weight loss, or rectal bleeding. She had a colonoscopy in [address] Juares which showed chronic colitis with presence of crypt abscesses. CAD/CABG, s/p MVR CHF HTN Angiomyolipoma - CT imaging reviewed by me showing large L sided vascular lesion arising from kidney, increased in size compared to prior imaging Abdominal pain, diarrhea - resolved, ?chronic colitis - Advance diet as tolerated - May continue with antibiotic therapy to complete 5 day course - Suggest surgical evaluation given enlarging angiomyolipoma with complaint of chronic left sided abdominal pain - Follow up cardiology recommendations - Suggest outpatient colonoscopy given findings on prior endoscopic examination with concern for underlying inflammatory bowel disease. No further planned GI interventions, will sign off case. Please reconsult as necessary, thank you.
[2018-01-02 08:13] LABS: BASO % 0.5 % (0.0-2.0); EOS # 0.1 K/uL (0.0-0.7); EOS % 2.3 % (0.0-4.0); HEMOGLOBIN 10.1 g/dL (11.0-16.0); LYMPH # 1.5 K/uL (1.0-4.3); LYMPH % 30.4 % (20.0-40.0); MEAN CELL VOLUME 79.7 fL (81.0-99.0); MEAN CORPUSCULAR HEMOGLOBIN 27.2 pg (27.0-31.0); MEAN CORPUSCULAR HGB CONC 34.1 g/dL (33.0-37.0); MEAN PLATELET VOLUME 8.3 fL (7.2-11.7); MONO # 0.6 K/uL (0.0-0.8); MONO % 11.9 % (0.0-10.0); NEUT # 2.8 K/uL (1.8-7.0); NEUT % 54.9 % (50.0-75.0); NRBC % 0.1 % (0.0-2.0); RBC 3.72 Mil/uL (3.80-5.20); RED CELL DISTRIBUTION WIDTH 13.9 % (11.5-14.5)
[2018-01-02 08:15] LABS: INR 1.1
[2018-01-02 08:50] LABS: ALB/GLOB RATIO 1.2 (1.0-2.1); ALBUMIN 3.7 g/dL (3.5-5.0); ALT/SGPT 34 U/L (9-52); AST/SGOT 24 U/L (14-36); BLOOD UREA NITROGEN 5 mg/dL (7-17); CALCIUM 8.8 mg/dl (8.6-10.4); GFR NON-AFRICAN AMERICAN > 60
[2018-01-02] MEDS ORDERED: Pantoprazole 40 mg EC Tab PO SCH (10:00)
[2018-01-02] MEDS: Lactobacillus Acidophilus 500 MU Cap PO SCH (10:10)
[2018-01-02] MEDS: Ciprofloxacin 400mg/200ml D5W 400 MG/200 ML BAG IVPB SCH (10:17)
[2018-01-02] MEDS: Sodium Chloride 0.9% 1,000 ML IV SCH ×2 (12:07)
[2018-01-02 15:39] VITALS: BP 117/66; PULSE 99; TEMP 98; O2SAT 97
[2018-01-04] MEDS ORDERED: Influenza Vaccine 60 MCG/0.5 ML SYR (3 yr & up) IM ONE (10:00)
== END 2018-01-02 16:45 | disposition home or self-care (01) | DRG 813 ==
LOC: C.ER 19:47 → C.9E 01-01 03:56 → C.3T 01-01 06:00
PROVIDERS: ADMIT Family Medicine; ATTEND Family Medicine
DX: K52.9 Noninfective gastroenteritis and colitis, unspecified (principal); I11.0 Hypertensive heart disease with heart failure; I50.9 Heart failure, unspecified; E78.00 Pure hypercholesterolemia, unspecified; E78.5 Hyperlipidemia, unspecified; I25.10 Atherosclerotic heart disease of native coronary artery without angina pectoris; K21.9 Gastro-esophageal reflux disease without esophagitis; M19.012 Primary osteoarthritis, left shoulder; Z95.1 Presence of aortocoronary bypass graft; Z95.2 Presence of prosthetic heart valve; Z95.5 Presence of coronary angioplasty implant and graft